=== PATIENT | male | born 1945 | race Caucasian/White ===

== ENCOUNTER 2020-11-07 10:58 | Outpatient (CLI) | payer MEDICARE, OTHER | END 2020-11-07 10:59 | disposition critical access hospital (66) | LOC: EMS 10:58 | DX: R55 Syncope and collapse (principal) | CPT/HCPCS: A0425; A0429 ==

== ENCOUNTER 2020-11-07 11:14 | Emergency (ER) | payer MEDICARE, OTHER ==
--- NOTE | 2020-11-07 11:34 | CT Report ---
PROCEDURE: HEAD WO INDICATIONS: 75-year-old male improving dysarthria, headache TECHNIQUE: Noncontrast 4.5 mm thick angled axial sections acquired from the foramen magnum to the vertex. For r adiation dose reduction, the following was used: automated exposure control, adjustment of mA and/or kV according to patient size. COMPARISON: None. FINDINGS: Image quality: Excellent. CSF spaces: Basal cisterns are patent. No extra-axial fluid collections. Ventricles are normal in size and shape. Brain: No midline shift. No intracranial masses or hemorrhage. Brooks-white matter interface is norm al. Cerebral and cerebellar age appropriate volume loss and multifocal white matter hypodensities co nsistent with chronic ischemic change. Skull and face: Calvarium and visualized facial bones are intact, without suspicious lesions. Sinuses: Visualized sinuses and mastoids are clear. IMPRESSION: Moderate atrophy and chronic ischemic change without acute hemorrhage or mass effect. Reviewed by: Adrian Blunt MD on 11/07/2020 10:33 AM DELLA Approved by: Adrian Blunt MD on 11/07/2020 10:33 AM AKDOMINGUEZ Station ID: [id number]
[2020-11-07 11:50] LABS: BASOPHILS % (AUTO) 0.3 %; EOSINOPHILS # (AUTO) 0.1 10^3/uL (0.0-0.7); EOSINOPHILS % (AUTO) 1.1 %; HCT - HEMATOCRIT 41.7 % (42.0-52.0); HGB - HEMOGLOBIN 15.1 g/dL (14.0-18.0); LYMPHOCYTES # (AUTO) 1.7 10^3/uL (1.5-3.5); LYMPHOCYTES % (AUTO) 16.7 %; MEAN CORPUSCULAR HEMOGLOBIN 34.2 pg (27.0-31.0); MEAN CORPUSCULAR HGB CONC 36.2 g/dL (32.0-36.0); MEAN CORPUSCULAR VOLUME 94.6 fL (80.0-94.0); MEAN PLATELET VOLUME 9.5 fL (7.4-11.4); MONOCYTES # (AUTO) 0.6 10^3/uL (0.0-1.0); NEUTROPHILS # (AUTO) 7.7 10^3/uL (1.5-6.6); NEUTROPHILS % (AUTO) 75.2 %; PLT - PLATELET COUNT 310 10^3/uL (130-450); RED BLOOD COUNT 4.41 10^6/uL (4.70-6.10); RED CELL DISTRIBUTION WIDTH 12.2 % (12.0-15.0); WHITE BLOOD COUNT 10.3 x10^3/uL (4.8-10.8)
[2020-11-07 11:57] LABS: INR 1.1 (0.8-1.2); PT - PROTHROMBIN TIME 12.5 secs (9.9-12.6)
[2020-11-07 12:03] LABS: ALBUMIN/GLOBULIN RATIO 1.5 (1.0-2.2); BILIRUBIN,TOTAL 0.9 mg/dL (0.2-1.0); CALCIUM 9.8 mg/dL (8.5-10.3); CREATININE 1.1 mg/dL (0.6-1.2); POTASSIUM 3.6 mmol/L (3.5-5.0); TOTAL PROTEIN 6.7 g/dL (6.7-8.2)
[2020-11-07] MEDS ORDERED: KETOROLAC 30 MG/ML VIAL IVP STA (12:33)
[2020-11-07] MEDS ORDERED: HYDROmorphone 1 MG/ML CARPUJECT IVP STA (12:33)
[2020-11-07 12:47] LABS: BILIRUBIN,URINE NEGATIVE (NEGATIVE); GLUCOSE, URINE (UA) NEGATIVE (NEGATIVE); KETONES,URINE (UA) NEGATIVE (NEGATIVE); LEUKOCYTE ESTERASE, URINE NEGATIVE (NEGATIVE); NITRITE,URINE NEGATIVE (NEGATIVE); OCCULT BLOOD,URINE NEGATIVE (NEGATIVE); PH,URINE 5.5 PH (5.0-7.5); PROTEIN,URINE NEGATIVE (NEGATIVE); UROBILINOGEN,URINE 0.2 (NORMAL) E.U./dL (NORMAL)
[2020-11-07 12:48] LABS: CLARITY,URINE CLEAR (CLEAR)
--- NOTE | 2020-11-07 13:05 | ED Physician Documentation ---
History of Present Illness - Stated complaint Stated Complaint: CODE STROKE - Chief complaint Chief Complaint: Neuro - History obtained from History obtained from: Patient, Family, EMS - Additonal information Additional information: Patient comes emergency department via EMS for chief complaint of syncopal episode at home today. Patient and state that the patient has been having increasingly severe right hip pain, which she has had for years but has been getting worse lately. When he got up this morning, his hip Hurts about that he had to crawl around on the floor to get anywhere. He was able to eat breakfast and swallowed without difficulty. He also was moving all his extremities normally otherwise and did not feel any weakness. The patient went to the bathroom and took a shower and after getting out, began to suddenly feel lightheaded and faint. His states that she caught him as he slumped down and that the patient was unconscious for some period of time. By the time the medics got there, had called immediately after the syncopal episode, the patient was starting to wake up, but was still somewhat altered. The patient at baseline has some issues with moving his tongue and as such, has dysarthria. However, it seemed a lot worse and patient seemed confused. Patient states he remembers waking up, and initially feeling quite confused and "out of it" when the medics arrived. Medics report that in route, the patient became much more awake and his speech cleared up. and patient both state that they feel the patient is at baseline now. Patient denies any focal weakness. No visual changes. No chest pain or shortness of breath at the time of the syncopal episode. No other complaints at this time. Review of Systems Ten Systems: 10 systems reviewed and negative Constitutional: reports: Reviewed and negative Eyes: reports: Reviewed and negative Ears: reports: Reviewed and negative Nose: reports: Reviewed and negative Throat: reports: Reviewed and negative Cardiac: reports: Reviewed and negative Respiratory: reports: Reviewed and negative GI: reports: Reviewed and negative : reports: Reviewed and negative Skin: reports: Reviewed and negative Musculoskeletal: reports: Reviewed and negative Neurologic: reports: Difficulty speaking (Chronically), Syncope Psychiatric: reports: Reviewed and negative Endocrine: reports: Reviewed and negative Immunocompromised: reports: Reviewed and negative PD PAST MEDICAL HISTORY - Past Medical History Past Medical History: Yes Cardiovascular: Hypertension, High cholesterol Respiratory: None Neuro: Other Endocrine/Autoimmune: None GI: None : None HEENT: None Musculoskeletal: Chronic back pain Derm: None Other Past Medical History: issue with tongue/speech, undiagnosed - Past Surgical History General: Other - Present Medications Home Medications: Ambulatory Orders Medication Instructions Recorded Confirmed Allopurinol [Zyloprim] 300 mg PO DAILY 11/07/20 11/07/20 Aspirin EC [Ecotrin] 325 mg PO DAILY 11/07/20 11/07/20 Atorvastatin [Lipitor] 20 mg ORAL HS 11/07/20 11/07/20 C,E,Zinc,Copper 11/Dsbcp0c/Lut 1 each PO DAILY 11/07/20 11/07/20 [Ocuvite Adult 50 Plus Softgel] Cholecalciferol (Vitamin D3) 1,000 unit PO DAILY 11/07/20 11/07/20 [Vitamin D3] Colchicine [Colcrys] 0.6 mg ORAL DAILY 11/07/20 11/07/20 Glucosamine/MSM/Hyaluron Acid 1 each PO DAILY 11/07/20 11/07/20 [Bozmpccmvzf-YTN-Zkdlbifgtu Tab] HYDROcod/ACETAM 5/325 [[place] 5/325] 1 - 2 tablet PO Q6H PRN #14 tablet 11/07/20 Hydrochlorothiazide 25 mg PO DAILY 11/07/20 11/07/20 [place]-3/Dha/Epa/Fish Oil [Fish Oil 1 each PO DAILY 11/07/20 11/07/20 1,000 mg Softgel] traMADol [Ultram] 50 mg PO Q4-6H 11/07/20 11/07/20 - Allergies Allergies/Adverse Reactions: Allergies Allergy/AdvReac Type Severity Reaction Status Date / Time terbinafine [From Lamisil] AdvReac Itching Verified 11/07/20 11:32 - Social History Does the pt smoke?: No Smoking Status: Never smoker Does the pt drink ETOH?: No Does the pt have substance abuse?: No - Immunizations Immunizations are current?: Yes PD ED PE NORMAL - Vitals Vital signs reviewed: Yes - General General: Alert and oriented X 3, No acute distress, Well developed/nourished - HEENT HEENT: Atraumatic, PERRL, EOMI, Moist mucous membranes - Neck Neck: Supple, no meningeal sign - Cardiac Cardiac: RRR, No murmur, Strong equal pulses - Respiratory Respiratory: No respiratory distress, Clear bilaterally - Abdomen Abdomen: Soft, Non tender, Non distended - Back Back: No CVA TTP, No spinal TTP - Derm Derm: Normal color, Warm and dry, No rash - Extremities Extremities: No deformity, No edema, No calf tenderness / cord - Neuro Neuro: Alert and oriented X 3, spiritual counselor 2-12 intact, No motor deficit, No sensory deficit, Other (Slightly altered speech, but easy to understand and fairly clear.) - Psych Psych: Normal mood, Normal affect Results - Vitals Vitals: Vital Signs - 24 hr 11/07/20 11/07/20 11/07/20 11:33 11:48 12:19 Temperature 36.4 C L Heart Rate 76 68 77 Respiratory 16 16 16 Rate Blood Pressure 163/84 H 163/84 H 130/87 H O2 Saturation 94 94 98 11/07/20 11/07/20 12:35 13:11 Temperature Heart Rate 99 82 Respiratory 18 16 Rate Blood Pressure 136/86 H 136/93 H O2 Saturation 97 96 Oxygen O2 Source Room air - EKG (time done) 1124 Rate: Rate (enter#) (74) Rhythm: NSR [place]: LAD Intervals: Normal [place] QRS: Normal Ischemia: Normal ST segments. No: T wave inversion Compare to prior EKG: Unchanged from prior EKG Computer interpretation: Agree with computer - Labs Labs: Laboratory Tests 11/07/20 11/07/20 11/07/20 11:43 11:43 11:43 WBC 10.3 RBC 4.41 L Hgb 15.1 Hct 41.7 L MCV 94.6 H MCH 34.2 H MCHC 36.2 H RDW 12.2 Plt Count 310 MPV 9.5 Neut # (Auto) 7.7 H Lymph # (Auto) 1.7 [place] # (Auto) 0.6 Eos # (Auto) 0.1 Baso # (Auto) 0.0 Absolute Nucleated RBC 0.00 Nucleated RBC % 0.0 PT 12.5 INR 1.1 Sodium 137 Potassium 3.6 Chloride 97 L Carbon Dioxide 28 Anion Gap 12.0 BUN 33 H Creatinine 1.1 Estimated GFR (MDRD) 65 L Glucose 118 H Calcium 9.8 Total Bilirubin 0.9 AST 17 ALT 27 Alkaline Phosphatase 96 Troponin I High Sens Total Protein 6.7 Albumin 4.0 Globulin 2.7 Albumin/Globulin Ratio 1.5 Lipase 53 H Urine Color Urine Clarity Urine pH Ur Specific [place] Urine Protein Urine Glucose (UA) Urine Ketones Urine Occult Blood Urine Nitrite Urine Bilirubin Urine Urobilinogen Ur Leukocyte Esterase Ur Microscopic Review Urine Culture Comments 11/07/20 11/07/20 11:43 12:35 WBC RBC Hgb Hct MCV MCH MCHC RDW Plt Count MPV Neut # (Auto) Lymph # (Auto) [place] # (Auto) Eos # (Auto) Baso # (Auto) Absolute Nucleated RBC Nucleated RBC % PT INR Sodium Potassium Chloride Carbon Dioxide Anion Gap BUN Creatinine Estimated GFR (MDRD) Glucose Calcium Total Bilirubin AST ALT Alkaline Phosphatase Troponin I High Sens 3.0 Total Protein Albumin Globulin Albumin/Globulin Ratio Lipase Urine Color YELLOW Urine Clarity CLEAR Urine pH 5.5 Ur Specific [place] 1.025 Urine Protein NEGATIVE Urine Glucose (UA) NEGATIVE Urine Ketones NEGATIVE Urine Occult Blood NEGATIVE Urine Nitrite NEGATIVE Urine Bilirubin NEGATIVE Urine Urobilinogen 0.2 (NORMAL) Ur Leukocyte Esterase NEGATIVE Ur Microscopic Review NOT INDICATED Urine Culture Comments NOT INDICATED - Rads (name of study) Ct head Radiology: Final report received, EMP read indepedently, See rad report (NAD) PD MEDICAL DECISION MAKING - ED course Complexity details: reviewed results, re-evaluated patient, considered differential, d/w patient, d/w family ED course: The patient had had a syncopal episode, but I did not find evidence of a clear- cut CVA. His head CT was unremarkable. Patient was also worked up with labs, EKG, and urinalysis, all of which were unremarkable. I spoke with the patient and , and inform them of the results of the testing. Patient stated he was feeling completely fine and both patient and were comfortable with the idea of going home.We have discussed the need to drink plenty of fluids and patient has been treated symptomatically here in the emergency department for his right hip pain. I will also put him on some analgesia for at home so that he gets a little better pain control. We have discussed to the usual indications for return. Departure - Departure Disposition: 01 Home, Self Care Clinical Impression: Hip pain, right Syncope Qualifiers: Syncope type: vasovagal syncope Qualified Code(s): R55 - Syncope and collapse Condition: Stable Instructions: ED Syncope Vasovagal Prescriptions: HYDROcod/ACETAM 5/325 [[place] 5/325] 1 - 2 tablet PO Q6H PRN #14 tablet PRN Reason: Pain Comments: All of your tests look good today. There is no evidence of an acute stroke, either by symptoms or on CT. Additionally, we have not found a serious or gio rgent cause of your fainting. As we have discussed, there are many causes of fainting and often, a combination of factors combines to cause this. Please be sure you are drinking plenty of fluids and get some rest today. You have been prescribed some pain medication to help with the hip pain you have been having. Please make an appointment today to see your doctor soon as possible to follow- up on both your hip and the fainting episode. Discharge Date/Time: 11/07/20 13:32
[2020-11-07 13:11] VITALS: BP 136/93
== END 2020-11-07 13:32 | disposition home or self-care (01) ==
LOC: EDUNIT# → ED 11:14
DX: R55 Syncope and collapse (principal); M25.551 Pain in right hip; R47.1 Dysarthria and anarthria; I10 Essential (primary) hypertension; Z79.82 Long term (current) use of aspirin
CPT/HCPCS: 36415; 70450; 80053; 81003; 83690; 84484; 85025; 85610; 93005; 96374; 96375; 99284; J1170; 81001; 87086